=== PATIENT | male | born 2005 | race American Indian/Alaskan Native ===

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

== ENCOUNTER 2023-04-06 20:28 | Emergency (ER) | payer OTHER ==
[~2023-04-06] VITALS: Ht 180.3 cm; Wt 93.8 kg
[~2023-04-06 20:28] MED LIST: CONSTULOSE10 GM/15 M PO; OLANZAPINE10 MG PO; ZYPREXA10 MG PO
--- OUTSIDE RECORDS SUMMARY | 2023-04-06 20:30 | XMS ---
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 Crystal has no Care Guidelines for this patient. Hilda VISIT COUNT (12 MO.) 10 [facility] TOTAL 10 NOTE: Visits indicate total known visits. 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 [place] TYPE: Emergency COMPLAINT: - MEDICAL CLEARANCE 11/02/2022 05:19 [facility] [place] TYPE: Emergency COMPLAINT: - MEDICAL CLEARANCE DIAGNOSES: - Auditory hallucinations - Contact with and (suspected) exposure to COVID-19 - Other stimulant use, unspecified with intoxication, unspecified 07/26/2022 08:10 [facility] [place] TYPE: Emergency COMPLAINT: - INTOXICATION DIAGNOSES: - Alcohol use, unspecified with intoxication, unspecified - Other psychoactive substance abuse, uncomplicated 07/24/2022 13:48 [facility] [place] TYPE: Emergency COMPLAINT: - INTOXICATION DIAGNOSES: - Alcohol abuse, uncomplicated - Altered mental status, unspecified - Cannabis abuse, uncomplicated - Other psychoactive substance abuse, uncomplicated - Other stimulant abuse, uncomplicated 07/24/2022 13:32 [facility] [place] TYPE: Emergency COMPLAINT: - INTOXICATION INPATIENT VISIT TRACKING (12 MO.) No inpatient visits to display in this time frame [id number]
[2023-04-06 22:50] LABS: INFLUENZA B NAA NEGATIVE (NEGATIVE); RESPIRATORY SYNCYTIAL VIR NAA NEGATIVE (NEGATIVE)
[2023-04-06 23:50] VITALS: BP 115/64
[2023-04-14] MEDS ORDERED: DOXYCYCLINE HY100 MG PO (13:36)
[2023-04-14] MEDS ORDERED: ELIQUIS5 MG PO (13:36)
== END 2023-04-06 23:51 | disposition home or self-care (01) ==
LOC: ED 20:28
PROVIDERS: Emergency Medicine
DX: J06.9 Acute upper respiratory infection, unspecified (principal); F20.9 Schizophrenia, unspecified; Z11.52 Encounter for screening for COVID-19
CPT/HCPCS: 87502; 99283; U0002

== ENCOUNTER 2023-04-15 12:43 | Emergency (ER) | payer OTHER ==
[~2023-04-15] VITALS: Ht 180.3 cm; Wt 92.7 kg
[~2023-04-15 12:43] MED LIST changes: +DOXYCYCLINE HY100 MG PO; +ELIQUIS5 MG PO
--- OUTSIDE RECORDS SUMMARY | 2023-04-15 12:44 | XMS ---
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 Crystal has no Care Guidelines for this patient. EYolandaDYolanda VISIT COUNT (12 MO.) [address] [facility] TOTAL 12 NOTE: Visits indicate total known visits. ED/UCC VISIT TRACKING (12 MO.) [facility] [place] [facility] COMPLAINT: - EXTREMITY PAIN 04/14/2023 09:52 [facility] [place] TYPE: Emergency COMPLAINT: - DRUG ABUSE 04/06/2023 20:28 [facility] [place] TYPE: Emergency COMPLAINT: - CHEST PAIN DIAGNOSES: - Acute upper respiratory infection, unspecified - Encounter for screening for COVID-19 - Other specified symptoms and signs involving the circulatory and respiratory systems - Schizophrenia, unspecified 12/24/2022 19:57 [facility] [place] TYPE: Emergency COMPLAINT: - SUBSTANCE ABUSE DIAGNOSES: - Other terminal 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 (current) drug therapy - Other stimulant abuse, uncomplicated - Pain in left shoulder - Schizophrenia, unspecified 12/06/2022 21:03 [facility] [place] TYPE: Emergency COMPLAINT: - ABD PAIN DIAGNOSES: - Constipation, unspecified - Other detention (current) drug therapy - Periumbilical pain - Schizophrenia, unspecified 12/03/2022 08:00 [facility] [place] TYPE: Emergency COMPLAINT: - MEDICATION REFILL DIAGNOSES: - Encounter for issue of repeat prescription - Other 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 [place] TYPE: Emergency COMPLAINT: - MEDICAL CLEARANCE DIAGNOSES: - Auditory hallucinations - Contact with and (suspected) exposure to COVID-19 - Other stimulant use, unspecified with intoxication, unspecified 07/26/2022 08:[address] [facility] [place] TYPE: Emergency COMPLAINT: - INTOXICATION DIAGNOSES: - Alcohol use, unspecified with intoxication, unspecified - Other psychoactive substance abuse, uncomplicated 07[facility]24[facility]2022 13:[facility] [place] [facility] COMPLAINT: - INTOXICATION DIAGNOSES: - Alcohol abuse, uncomplicated - Altered mental status, unspecified - Cannabis abuse, uncomplicated - Other psychoactive substance abuse, uncomplicated - Other stimulant abuse, uncomplicated 07/24/2022 13:[address] [facility] [place] TYPE: Emergency COMPLAINT: - INTOXICATION INPATIENT VISIT TRACKING (12 MO.) No inpatient visits to display in this time frame [id number]
[2023-04-15] MEDS ORDERED: DOXYCYCLINE HYCLATE 100 MG CAP PO ONE (15:45)
[2023-04-15] MEDS ORDERED: APIXABAN 5 MG TAB PO ONE (16:00)
[2023-04-15 17:34] VITALS: BP 155/89
== END 2023-04-15 17:36 | disposition home or self-care (01) ==
LOC: ED 12:43
DX: I82.402 Acute embolism and thrombosis of unspecified deep veins of left lower extremity (principal); L03.116 Cellulitis of left lower limb; L03.115 Cellulitis of right lower limb; F20.9 Schizophrenia, unspecified; F31.9 Bipolar disorder, unspecified

== ENCOUNTER → 2023-04-16 | Emergency (ER) | payer OTHER ==
[~2023-04-16] VITALS: Ht 180.3 cm; Wt 92.5 kg
[~2023-04-16] MED LIST changes: +APIXABAN 5 MG TAB PO ONE; +APIXABAN 5 MG TAB PO SCH; +DOXYCYCLINE HYCLATE 100 MG CAP PO ONE; +DOXYCYCLINE HYCLATE 100 MG CAP PO SCH; +LORazepam 1 MG TAB PO ONE; +LORazepam 1 MG TAB PO SCH; +OLANZapine 10 MG TAB PO ONE; +OLANZapine 10 MG TAB PO SCH; +OLANZapine 10 MG TABDIS PO ONE; +TRAZODONE HCL 50 MG TAB PO SCH
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
[2023-04-16 13:44] LABS: HEMATOCRIT 40.9 % (35.0-50.0); HEMOGLOBIN 13.9 g/dL (12.0-18.0); MCH 29.2 (27-36); MCHC 34.1 g/dl (30-36); MCV 85.7 fl (81-99); PLATELET COUNT 245 K/uL (140-440); RBC 4.77 M/ul (4.3-5.7); RDW 13.9 (10.5-15.0)
[2023-04-16 14:11] LABS: ACETAMINOPHEN 0 ug/mL (10-30); ALBUMIN 3.6 g/dL (3.4-5.0); ALBUMIN/GLOBULIN RATIO 0.88 (1.1-2.4); ALCOHOL, MEDICAL <3 ng/dL (<3); ALKALINE PHOSPHATASE 104 U/L (46-116); ALT (SGPT) 27 U/L (14-59); ANION GAP 13.7 (7-21); AST (SGOT) 19 U/L (15-37); BILIRUBIN, TOTAL 0.8 ng/dL (0.2-1.0); CARBON DIOXIDE 29 mmol/L (21-32); CHLORIDE 103 mmol/L (98-107); GLOMERULAR FILTRATION RATE,EST 130 mL/min (>60); POTASSIUM 3.7 mmol/L (3.5-5.1); PROTEIN, TOTAL 7.7 g/dL (6.4-8.2); SALICYLATE 1.7 mg/dL (2.8-20.0); TSH, 3RD GENERATION 0.754 uIU/mL (0.516-4.130); UREA NITROGEN 12 mg/dL (7-18)
[2023-04-16 14:12] LABS: BANDS, MANUAL DIFF 1; LYMPHOCYTES, MANUAL DIFF 19; MONOCYTES, MANUAL DIFF 7; NEUTROPHILS, MANUAL DIFF 73
[2023-04-16 15:42] LABS: BILIRUBIN, URINE POSITIVE (negative); BLOOD/HGB, URINE NEGATIVE (Negative); KETONE, URINE SMALL (Negative); LEUK ESTERASE, URINE NEGATIVE (negative); NITRITE, URINE NEGATIVE (negative)
[2023-04-16 15:50] LABS: AMPHETAMINES, URINE POSITIVE (NEGATIVE); BARBITURATES, URINE NEGATIVE (NEGATIVE); BENZODIAZEPINE, URINE NEGATIVE (NEGATIVE); BUPRENORPHINE, URINE NEGATIVE (NEGATIVE); CANNABINOID, URINE POSITIVE (NEGATIVE); COCAINE, URINE NEGATIVE (NEGATIVE); ECSTASY, URINE POSITIVE (NEGATIVE); FENTANYL, URINE POSITIVE (NEGATIVE); METHADONE, URINE NEGATIVE (NEGATIVE); OPIATES, URINE NEGATIVE (NEGATIVE); OXYCODONE, URINE NEGATIVE (NEGATIVE); PHENCYCLIDINE, URINE NEGATIVE (NEGATIVE)
[2023-04-16 16:27] LABS: INFLUENZA B NAA NEGATIVE (NEGATIVE); RESPIRATORY SYNCYTIAL VIR NAA NEGATIVE (NEGATIVE)
[2023-04-18 20:50] VITALS: BP 154/77
== END ==
LOC: ED 08:38
PROVIDERS: Emergency Medicine
DX: F22 Delusional disorders (principal); L03.116 Cellulitis of left lower limb; L03.115 Cellulitis of right lower limb; I82.402 Acute embolism and thrombosis of unspecified deep veins of left lower extremity; Z79.899 Other long term (current) drug therapy; Z79.01 Long term (current) use of anticoagulants
CPT/HCPCS: 36415; 71045; 80053; 80307; 81003; 84443; 85025; 87502; A9270; A9270-GY; G0480; U0002

== ENCOUNTER 2024-04-29 16:26 | Emergency (ER) | payer OTHER ==
[~2024-04-29] VITALS: Ht 180.3 cm; Wt 103.0 kg
[~2024-04-29 16:26] MED LIST changes: -APIXABAN 5 MG TAB PO ONE; -APIXABAN 5 MG TAB PO SCH; -DOXYCYCLINE HYCLATE 100 MG CAP PO ONE; -DOXYCYCLINE HYCLATE 100 MG CAP PO SCH; -LORazepam 1 MG TAB PO ONE; -LORazepam 1 MG TAB PO SCH; +MINIPRESS1 MG PO; -OLANZapine 10 MG TAB PO ONE; -OLANZapine 10 MG TAB PO SCH; -OLANZapine 10 MG TABDIS PO ONE; +PROPRANOLOL HCL10 MG PO; -TRAZODONE HCL 50 MG TAB PO SCH; +TRAZODONE HCL50 MG PO; +VITAMIN D3125 MC2 PO
[2024-04-29 18:37] LABS: BASOPHILS 0.3 % (0-2); EOSINOPHILS 1.1 % (0-6); HEMOGLOBIN 15.5 g/dL (12.0-18.0); MCHC 35.2 g/dl (30-36); MCV 88.2 fl (81-99); MONOCYTES 11.9 % (0-12); NEUTROPHILS 63.7 % (39-80); PLATELET COUNT 253 K/uL (140-440); RBC 4.99 M/ul (4.3-5.7); RDW 13.9 (10.5-15.0)
[2024-04-29] MEDS ORDERED: BUSPIRONE HCL15 MG PO (18:54)
[2024-04-29] MEDS ORDERED: TOPAMAX25 M1 (18:55)
[2024-04-29] MEDS ORDERED: PROZAC20 MG PO (18:55)
[2024-04-29 19:04] LABS: ACETAMINOPHEN 0 ug/mL (10-30); ALBUMIN/GLOBULIN RATIO 1.08 (1.1-2.4); ALCOHOL, MEDICAL <3 ng/dL (<3); ALKALINE PHOSPHATASE 97 U/L (46-116); ALT (SGPT) 37 U/L (14-59); ANION GAP 15.4 (7-21); AST (SGOT) 18 U/L (15-37); BILIRUBIN, TOTAL 0.6 mg/dL (0.2-1.0); CALCIUM 8.8 mg/dL (8.5-10.1); CARBON DIOXIDE 24 mmol/L (21-32); CHLORIDE 104 mmol/L (98-107); CREATININE, SERUM 0.95 mg/dL (0.70-1.30); GLOMERULAR FILTRATION RATE,EST 117 mL/min (>60); POTASSIUM 3.4 mmol/L (3.5-5.1); PROTEIN, TOTAL 7.7 g/dL (6.4-8.2); SALICYLATE 0.7 mg/dL (2.8-20.0); TSH, 3RD GENERATION 1.018 uIU/mL (0.358-3.740); UREA NITROGEN 2 mg/dL (7-18)
[2024-04-29 19:07] LABS: BILIRUBIN, URINE NEGATIVE (negative); BLOOD/HGB, URINE NEGATIVE (Negative); KETONE, URINE NEGATIVE (Negative); LEUK ESTERASE, URINE NEGATIVE (negative); NITRITE, URINE NEGATIVE (negative)
[2024-04-29 19:23] LABS: AMPHETAMINES, URINE POSITIVE (NEGATIVE); BARBITURATES, URINE NEGATIVE (NEGATIVE); BENZODIAZEPINE, URINE NEGATIVE (NEGATIVE); BUPRENORPHINE, URINE NEGATIVE (NEGATIVE); CANNABINOID, URINE POSITIVE (NEGATIVE); COCAINE, URINE NEGATIVE (NEGATIVE); ECSTASY, URINE NEGATIVE (NEGATIVE); FENTANYL, URINE NEGATIVE (NEGATIVE); METHADONE, URINE NEGATIVE (NEGATIVE); OPIATES, URINE NEGATIVE (NEGATIVE); OXYCODONE, URINE NEGATIVE (NEGATIVE); PHENCYCLIDINE, URINE NEGATIVE (NEGATIVE)
[2024-04-29] MEDS ORDERED: SODIUM CHLORIDE 0.9% 1,000 ML IV ONE (19:30)
[2024-04-30 00:10] VITALS: BP 123/60
--- NOTE | 2024-04-30 22:00 | EKG ---
[facility] [address] [facility] [place] [address] Signed Normal sinus rhythm Normal ECG When compared with ECG of 10-MAY-2023 05:43, No significant change was found Confirmed by Rudi Gomez MD () on 04/30/2024 10:00:21 PM Electronically Signed By: RUDI GOMEZ MD 04/30/242199 PATIENT NAME: HAWA FLEMING Electrocardiogram DATE OF : [birth year] PHYSICIAN: RUDI GOMEZ MD REPORT #: [id number] REPORT IS CONFIDENTIAL AND NOT TO BE RELEASED WITHOUT AUTHORIZATION
== END 2024-04-30 00:10 | disposition home or self-care (01) ==
LOC: ED 16:26
PROVIDERS: Emergency Medicine
DX: T43.621A Poisoning by amphetamines, accidental (unintentional), initial encounter (principal); M25.512 Pain in left shoulder
CPT/HCPCS: 36415; 73030; 80053; 80307; 81003; 84443; 85025; 86922; 93005; 93010; 99284; G0480; J7030